=== PATIENT | male | born 2000 | race Caucasian/White ===

== ENCOUNTER 2023-01-28 10:46 | Emergency (ER) | payer OTHER ==
[~2023-01-28] VITALS: Ht 180.3 cm; Wt 63.3 kg
[2023-01-28 13:42] LABS: CHLAMYDIA DNA AMPLIFICATION NEGATIVE (NEGATIVE); GC DNA AMPLIFICATION NEGATIVE (NEGATIVE)
[2023-01-28] MEDS ORDERED: cefTRIAXone 500MG VIAL IM ONE (14:00)
[2023-01-28] MEDS ORDERED: LIDOCAINE 1% SDV 5ML VIAL DILUENT ONE (14:00)
[2023-01-28] MEDS ORDERED: DOXYCYCLINE HYCLATE 100MG TABLET PO ONE (14:00)
[2023-01-28] MEDS ORDERED: DOXY-443 PO (14:12)
[2023-01-28 14:20] VITALS: BP 118/70; TEMP 97.8; O2SAT 97
== END 2023-01-28 14:21 | disposition home or self-care (01) ==
LOC: M ED 10:46
DX: N34.1 Nonspecific urethritis (principal); R36.9 Urethral discharge, unspecified; F17.200 Nicotine dependence, unspecified, uncomplicated; F10.10 Alcohol abuse, uncomplicated; Z88.1 Allergy status to other antibiotic agents; Z79.2 Long term (current) use of antibiotics
CPT/HCPCS: 81001; 87661; 87810; 87850; 96372; 99283; J0696